=== PATIENT | female | born 1985 | race Caucasian/White ===

== ENCOUNTER 2016-08-01 08:28 | Emergency (ER) | payer OTHER ==
[~2016-08-01] VITALS: Ht 165.1 cm; Wt 68.0 kg
[2016-08-01 08:37] VITALS: BP 96/66
[2016-08-01] MEDS ORDERED: ONDANSETRON 4 MG ODT PO ONE (08:45)
[2016-08-01] MEDS ORDERED: KETOROLAC 60 MG/2 ML VIAL IM ONE (08:45)
--- NOTE | 2016-08-01 08:50 | NUR ---
30/F BIB FAMILY C/O N/V & MID ABDOMINAL PAIN X 2 DAYS. PT STATES PAIN RADIATING TO LOWER BACK; SKIN IS PINK/WARM/DRY; AAOX4 WITH EVEN AND STEADY GAIT; LUNGS CLEAR BL; HR EVEN AND REGULAR; PT DENIES ANY FEVER, CP, SOB, OR COUGH AT THIS TIME; PATIENT STATES HAS THROBBING PAIN OF 6/10 AT THIS TIME; VSS; PATIENT POSITIONED FOR COMFORT; HOB ELEVATED; BEDRAILS UP X2; BED DOWN. ER MD MADE AWARE OF PT STATUS.
--- NOTE | 2016-08-01 08:56 | NUR ---
lab at bedside
[2016-08-01] MEDS ORDERED: DICYCLOMINE HCL LIQUID 10 MG/5 ML UDC PO ONE (09:10)
[2016-08-01 09:24] LABS: ANION GAP 13.4 (8-16); CALCIUM 8.7 mg/dL (8.5-10.1); CARBON DIOXIDE 24.2 mmol/L (21-32); CREATININE 0.8 mg/dL (0.6-1.3); POTASSIUM 3.6 mmol/L (3.5-5.1)
[2016-08-01 09:29] LABS: TOTAL BILIRUBIN 0.8 mg/dL (0.0-1.0); TOTAL PROTEIN, SERUM 7.6 g/dL (6.4-8.2)
--- NOTE | 2016-08-01 09:30 | NUR ---
Patient appears to be resting comfortably in bed. Vital Signs within normal limits. Respirations even and unlabored.WILL CONTINUE TO MONITOR
[2016-08-01 09:36] LABS: BASOPHILS # (AUTO) 0.1 K/uL (0.00-0.22); BASOPHILS % (AUTO) 1.5 % (0.0-2.0); EOSINOPHILS # (AUTO) 0.2 K/uL (0-0.4); EOSINOPHILS % (AUTO) 2.3 % (0.0-4.0); HEMATOCRIT 36.9 % (36-48); HEMOGLOBIN 11.4 g/dL (12.0-16.0); LYMPHOCYTES # (AUTO) 0.4 K/uL (2.5-16.5); LYMPHOCYTES % (AUTO) 5.4 % (20.5-51.1); MEAN CORPUSCULAR HEMOGLOBIN 23 pg (27-31); MEAN CORPUSCULAR HGB CONC 31 g/dL (33-37); MEAN CORPUSCULAR VOLUME 74 fL (80-94); MONOCYTES # (AUTO) 0.2 K/uL (0.8-1.0); MONOCYTES % (AUTO) 2.3 % (1.7-9.3); NEUTROPHILS # (AUTO) 7.3 K/uL (1.8-7.7); NEUTROPHILS % (AUTO) 88.5 % (42.2-75.2); PLATELET COUNT (AUTO) 226 K/uL (140-450); RED BLOOD CELL COUNT(AUTO) 5.01 MIL/uL (4.20-5.40); RED CELL DISTRIBUTION WIDTH 16.8 % (11.6-13.7); WHITE BLOOD COUNT (AUTO) 8.2 K/uL (4.8-10.8)
[2016-08-01] MEDS ORDERED: ALUMINUM HYD/MAG/SIMETHICONE 30 ML UDC PO ONE (09:50)
[2016-08-01] MEDS ORDERED: LIDOCAINE VISCOUS 2% 20 ML UDC PO ONE (09:50)
[2016-08-01 10:08] VITALS: BP 119/70
--- NOTE | 2016-08-01 10:08 | NUR ---
Patient discharged with v/s stable. Written and verbal after care instructions given and explained. Patient alert, oriented and verbalized understanding of instructions. Ambulatory with steady gait. All questions addressed prior to discharge. ID band removed. Patient advised to follow up with PMD. Rx of ZOFRAN ODT & BENTYL given. Patient educated on indication of medication including possible reaction and side effects. Opportunity to ask questions provided and answered.
== END 2016-08-01 10:08 | disposition home or self-care (01) ==
LOC: MED 08:28
DX: K29.70 Gastritis, unspecified, without bleeding (principal)
CPT/HCPCS: 36415; 80053; 81002; 81025; 83690; 84703; 85025; 96372; 99284; J1885; S0119

== ENCOUNTER 2021-06-12 13:05 | Observation (INO) | payer OTHER ==
[2021-06-12 14:10] VITALS: BP 124/58
[2021-06-12 14:23] LABS: APPEARANCE,URINE HAZY (CLEAR); BILIRUBIN,URINE NEGATIVE (NEGATIVE); BLOOD, URINE NEGATIVE (NEGATIVE); COLOR,URINE YELLOW (YELLOW); LEUKOCYTE ESTERASE ,URINE 1+ (NEGATIVE); NITRITE, URINE NEGATIVE (NEGATIVE); PH,URINE 7.5 (5.0-9.0); UGLUCOSE NEGATIVE (NEGATIVE)
[2021-06-12 14:28] LABS: RBC,URINE NONE SEEN /HPF (0-5)
[2021-06-12 14:29] LABS: CALCIUM OXALATE CRYSTALS,UR None Seen /HPF (None Seen); COARSE GRANULAR CASTS,URINE None Seen /LPF (None Seen); FINE GRANULAR CASTS,URINE None Seen /LPF (None Seen); HYALINE CASTS, URINE None Seen /LPF (None Seen); OTHER CASTS, URINE None Seen /LPF (None Seen); OTHER CRYSTALS,URINE None Seen /HPF (None Seen); RED BLOOD CELL CASTS,URINE None Seen /LPF (None Seen); TRICHOMONAS,URINE None Seen /HPF (None Seen); TRIPLE PHOSPHATE CRYSTAL,UR None Seen /HPF (None Seen); URIC ACID CRYSTALS,URINE None Seen /HPF (None Seen); URINE AMORPHOUS URATE None Seen /HPF (None Seen); WAXY CASTS,URINE None Seen /LPF (None Seen); YEAST,URINE None Seen /HPF (None Seen)
== END 2021-06-12 18:45 | disposition home or self-care (01) ==
LOC: MLD 13:05
PROVIDERS: ADMIT Obstetrics & Gynecology; ATTEND Obstetrics & Gynecology
DX: O26.892 Other specified pregnancy related conditions, second trimester (principal); R10.9 Unspecified abdominal pain; O99.012 Anemia complicating pregnancy, second trimester; D50.9 Iron deficiency anemia, unspecified; Z3A.21 21 weeks gestation of pregnancy
CPT/HCPCS: 81001; 87086; G0378; 59025

== ENCOUNTER 2021-06-16 10:12 | Observation (INO) | payer OTHER ==
[~2021-06-16] VITALS: Ht 170.2 cm; Wt 83.9 kg
[2021-06-16] MEDS ORDERED: LACTATED RINGERS 1,000 ML IV SCH (11:00)
[2021-06-16 11:12] VITALS: BP 115/56
[2021-06-16] MEDS ORDERED: SODIUM FERRIC GLUCONATE 125 MG in NACL 0.9% 100 ML IV SCH (12:00)
== END 2021-06-16 13:35 | disposition home or self-care (01) ==
LOC: MLD 10:12
PROVIDERS: ADMIT Obstetrics & Gynecology; ATTEND Obstetrics & Gynecology
DX: O36.8130 Decreased fetal movements, third trimester, not applicable or unspecified (principal); Z20.822 Contact with and (suspected) exposure to COVID-19; Z3A.39 39 weeks gestation of pregnancy
CPT/HCPCS: 59025; 81000; 87426; 96365; G0378; J2916

== ENCOUNTER 2021-06-19 08:23 | Observation (INO) | payer OTHER ==
[~2021-06-19] VITALS: Ht 170.2 cm; Wt 83.9 kg
[2021-06-19 08:40] VITALS: BP 108/56
[2021-06-19] MEDS ORDERED: PRETAB PO (08:50)
[2021-06-19] MEDS ORDERED: LACTATED RINGERS 1,000 ML IV SCH (08:50)
[2021-06-19] MEDS ORDERED: SODIUM FERRIC GLUCONATE 125 MG in NACL 0.9% 100 ML IV SCH (10:00)
== END 2021-06-19 11:02 | disposition home or self-care (01) ==
LOC: MLD 08:23
PROVIDERS: ADMIT Obstetrics & Gynecology; ATTEND Obstetrics & Gynecology
DX: Z34.83 Encounter for supervision of other normal pregnancy, third trimester (principal); Z3A.30 30 weeks gestation of pregnancy
CPT/HCPCS: 59025; 96365; G0378; G0379; J2916

== ENCOUNTER 2021-06-23 08:25 | Observation (INO) | payer OTHER ==
[~2021-06-23] VITALS: Ht 170.2 cm; Wt 83.9 kg
[~2021-06-23 08:25] MED LIST: PRETAB PO
[2021-06-23] MEDS ORDERED: SODIUM FERRIC GLUCONATE 125 MG in NACL 0.9% 100 ML IV SCH (10:00)
[2021-06-23] MEDS ORDERED: AZITHROMYCIN SUSP 200 MG/5 ML ONE (20:44)
== END 2021-06-23 10:55 | disposition home or self-care (01) ==
LOC: MLD 08:25
PROVIDERS: ADMIT Obstetrics & Gynecology; ATTEND Obstetrics & Gynecology
DX: O99.013 Anemia complicating pregnancy, third trimester (principal); D50.9 Iron deficiency anemia, unspecified; Z3A.31 31 weeks gestation of pregnancy
CPT/HCPCS: 59025; 81000; 96365; G0378; J2916

== ENCOUNTER 2021-08-19 21:50 | Inpatient (IN) | payer OTHER ==
[~2021-08-19] VITALS: Ht 170.2 cm; Wt 90.7 kg
[2021-08-19 22:09] VITALS: BP 134/66
[2021-08-19] MEDS ORDERED: FERR-212 PO (22:25)
[2021-08-19] MEDS ORDERED: CARBOPROST 250 MCG/ML AMP IM PRN (22:30)
[2021-08-19] MEDS ORDERED: MORPHINE SULFATE 5 MG/ML VIAL IVP PRN (22:30)
[2021-08-19] MEDS ORDERED: METHYLERGONOVINE 0.2 MG/ML AMP IM PRN (22:30)
[2021-08-19] MEDS ORDERED: ONDANSETRON 4 MG/2 ML VIAL IVP PRN (22:30)
[2021-08-19] MEDS ORDERED: AMPICILLIN 2,000 MG in NACL 0.9% MINI-BAG PLUS 100 ML IV SCH (22:30)
[2021-08-19] MEDS ORDERED: LACTATED RINGERS 500 ML IV SCH (22:30)
[2021-08-19] MEDS ORDERED: OXYTOCIN 20 UNITS in LACTATED RINGERS 1,000 ML IV SCH (22:30)
[2021-08-19] MEDS ORDERED: LACTATED RINGERS 1,000 ML IV SCH (22:30)
[2021-08-20 00:15] LABS: BASOPHILS % (AUTO) 0.4 % (0.0-2.0); EOSINOPHILS # (AUTO) 0.1 K/uL (0-0.4); EOSINOPHILS % (AUTO) 0.7 % (0.0-4.0); HEMATOCRIT 35.6 % (36-48); HEMOGLOBIN 11.4 g/dL (12.0-16.0); LYMPHOCYTES # (AUTO) 1.4 K/uL (2.5-16.5); LYMPHOCYTES % (AUTO) 16.6 % (20.5-51.1); MEAN CORPUSCULAR HEMOGLOBIN 28 pg (27-31); MEAN CORPUSCULAR HGB CONC 32 g/dL (33-37); MONOCYTES # (AUTO) 0.5 K/uL (0.8-1.0); MONOCYTES % (AUTO) 6.4 % (1.7-9.3); NEUTROPHILS # (AUTO) 6.2 K/uL (1.8-7.7); NEUTROPHILS % (AUTO) 75.9 % (42.2-75.2); PLATELET COUNT (AUTO) 207 K/uL (140-450); RED BLOOD CELL COUNT(AUTO) 4.14 MIL/uL (4.20-5.40); RED CELL DISTRIBUTION WIDTH 16.2 % (11.6-13.7); WHITE BLOOD COUNT (AUTO) 8.2 K/uL (4.8-10.8)
[2021-08-20 00:23] LABS: PROTHROMBIN TIME 9.5 secs (10.8-13.4)
[2021-08-20 00:28] LABS: ALBUMIN 2.4 g/dL (3.4-5.0); ANION GAP 10.8 (8-16); CREATININE 0.4 mg/dL (0.6-1.3); POTASSIUM 3.8 mmol/L (3.5-5.1); TOTAL BILIRUBIN 0.2 mg/dL (0.0-1.0)
[2021-08-20] MEDS ORDERED: AMPICILLIN 1,000 MG in NACL 0.9% MINI-BAG PLUS 50 ML IV SCH (04:00)
== END 2021-08-20 00:10 | disposition home or self-care (01) | DRG 566 ==
LOC: MLD 21:50
PROVIDERS: ADMIT Obstetrics & Gynecology; ATTEND Obstetrics & Gynecology
DX: O99.013 Anemia complicating pregnancy, third trimester (principal); D64.9 Anemia, unspecified; Z3A.39 39 weeks gestation of pregnancy
CPT/HCPCS: 36415; 76815; 80053; 85025; 85610; 85730; 86592; 86886; 86900; 86901; 87340; J2590; J7120; Q0092

== ENCOUNTER 2021-09-01 04:15 | Inpatient (IN) | payer OTHER ==
[~2021-09-01] VITALS: Ht 170.2 cm; Wt 94.8 kg
[~2021-09-01 04:15] MED LIST changes: +FERR-212 PO
[2021-09-01] MEDS ORDERED: LACTATED RINGERS 500 ML IV SCH (04:35)
[2021-09-01] MEDS ORDERED: AMPICILLIN 2,000 MG in NACL 0.9% 100 ML IV STA (04:59)
[2021-09-01] MEDS ORDERED: AMPICILLIN 2,000 MG VIAL ONE (05:08)
[2021-09-01] MEDS ORDERED: OXYTOCIN 20 UNITS/LR PREMIX 1,000 ML IV ONE ×2 (05:09→12:14)
[2021-09-01 05:41] VITALS: BP 146/85
[2021-09-01 05:41] LABS: APPEARANCE,URINE CLEAR (CLEAR); BILIRUBIN,URINE NEGATIVE (NEGATIVE); BLOOD, URINE NEGATIVE (NEGATIVE); COLOR,URINE YELLOW (YELLOW); LEUKOCYTE ESTERASE ,URINE TRACE (NEGATIVE); NITRITE, URINE NEGATIVE (NEGATIVE); UGLUCOSE NEGATIVE (NEGATIVE)
[2021-09-01 05:52] LABS: PROTHROMBIN TIME 9.5 secs (10.8-13.4)
[2021-09-01] MEDS: LACTATED RINGERS 1,000 ML IV SCH ×4 (05:59→13:23)
[2021-09-01 06:20] LABS: ALBUMIN 2.4 g/dL (3.4-5.0); ANION GAP 12.3 (8-16); CARBON DIOXIDE 21.8 mmol/L (21-32); CREATININE 0.5 mg/dL (0.6-1.3); POTASSIUM 4.1 mmol/L (3.5-5.1); TOTAL BILIRUBIN 0.3 mg/dL (0.0-1.0)
[2021-09-01 06:55] LABS: RBC,URINE 0-5 /HPF (0-5); WBC,URINE 0-5 /HPF (0-5)
[2021-09-01 06:57] LABS: OTHER CASTS, URINE None Seen /LPF (None Seen)
[2021-09-01] MEDS ORDERED: ROPIVACAINE 0.2%/NS PREMIX 200 ML EPI ONE (07:26)
[2021-09-01] MEDS ORDERED: fentaNYL citrate 0.05 MG/ML VIAL ONE (07:40)
--- NOTE | 2021-09-01 08:56 | NUR ---
PATIENT HAS BEEN SCREENED AND CATEGORIZED LOW NUTRITION RISK. PATIENT WILL BE SEEN WITHIN 7 DAYS OF ADMISSION. 09/07/[address]
[2021-09-01 10:18] LABS: BASOPHILS # (AUTO) 0.1 K/uL (0.00-0.22); BASOPHILS % (AUTO) 1.1 % (0.0-2.0); EOSINOPHILS % (AUTO) 0.4 % (0.0-4.0); HEMATOCRIT 37.2 % (36-48); HEMOGLOBIN 11.9 g/dL (12.0-16.0); LYMPHOCYTES # (AUTO) 1.6 K/uL (2.5-16.5); LYMPHOCYTES % (AUTO) 17.2 % (20.5-51.1); MEAN CORPUSCULAR HEMOGLOBIN 28 pg (27-31); MEAN CORPUSCULAR HGB CONC 32 g/dL (33-37); MONOCYTES # (AUTO) 0.6 K/uL (0.8-1.0); MONOCYTES % (AUTO) 6.5 % (1.7-9.3); NEUTROPHILS # (AUTO) 6.9 K/uL (1.8-7.7); NEUTROPHILS % (AUTO) 74.8 % (42.2-75.2); PLATELET COUNT (AUTO) 200 K/uL (140-450); RED BLOOD CELL COUNT(AUTO) 4.23 MIL/uL (4.20-5.40); RED CELL DISTRIBUTION WIDTH 16.5 % (11.6-13.7); WHITE BLOOD COUNT (AUTO) 9.2 K/uL (4.8-10.8)
[2021-09-01] MEDS ORDERED: METHYLERGONOVINE 0.2 MG/ML AMP IM PRN (13:00)
[2021-09-01] MEDS ORDERED: METHYLERGONOVINE 0.2 MG TAB PO PRN (13:00)
[2021-09-01] MEDS ORDERED: SIMETHICONE 80 MG TAB.CHEW PO PRN (13:00)
[2021-09-01] MEDS ORDERED: BENZOCAINE/MENTHOL 20%-0.5% 60 GM CAN TP PRN (13:00)
[2021-09-01] MEDS ORDERED: OXYTOCIN 10 UNITS/ML VIAL IM PRN (13:00)
[2021-09-01] MEDS ORDERED: DOCUSATE SODIUM 100 MG GELCAP PO PRN (13:00)
[2021-09-01] MEDS ORDERED: IBUPROFEN 800 MG TAB PO PRN (13:00)
[2021-09-01] MEDS ORDERED: bisacodyL 5 MG TABEC PO PRN (13:00)
[2021-09-01] MEDS ORDERED: MEASLES, MUMPS, AND RUBELLA 1 VIAL SQVAC ONE (13:00)
[2021-09-01] MEDS ORDERED: IBUPROFEN 600 MG TAB PO PRN (13:00)
[2021-09-02 08:07] LABS: HEPATITIS B SURFACE ANTIGEN Negative (Negative)
[2021-09-02] MEDS ORDERED: MULTIVIT/MIN/CA/FE/FA 1 TAB PO SCH (09:00)
== END 2021-09-02 14:45 | disposition home or self-care (01) | DRG 560 ==
LOC: MFCC 04:15
PROVIDERS: ADMIT Obstetrics & Gynecology; ATTEND Obstetrics & Gynecology
PROC: 10D07Z6 Extraction of Products of Conception, Vacuum, Via Natural or Artificial Opening (ICD-10-PCS; principal; 2021-09-01)
PROC: 3E0R3BZ Introduction of Anesthetic Agent into Spinal Canal, Percutaneous Approach (ICD-10-PCS; 2021-09-01)
PROC: 00HU33Z Insertion of Infusion Device into Spinal Canal, Percutaneous Approach (ICD-10-PCS; 2021-09-01)
DX: O36.63X0 Maternal care for excessive fetal growth, third trimester, not applicable or unspecified (principal); Z37.0 Single live birth; D50.9 Iron deficiency anemia, unspecified; O69.81X0 Labor and delivery complicated by cord around neck, without compression, not applicable or unspecified; O13.9 Gestational [pregnancy-induced] hypertension without significant proteinuria, unspecified trimester; O48.0 Post-term pregnancy; O99.02 Anemia complicating childbirth; Z3A.40 40 weeks gestation of pregnancy; O66.0 Obstructed labor due to shoulder dystocia
CPT/HCPCS: 36415; 51702; 80053; 81001; 85018; 85025; 85610; 85730; 86592; 86762; 86886; 86900; 86901; 87340; J0290; J2590; J2795; J3010